=== PATIENT | female | born 1955 | race Caucasian/White ===

== ENCOUNTER → 2016-11-18 | Outpatient (CLI) | payer BC ==
[~2016-11-18] MED LIST: ZANTAC 7575 MG PO
== END ==
LOC: COL.RAD 09:42
DX: K80.20 Calculus of gallbladder without cholecystitis without obstruction (principal); K76.0 Fatty (change of) liver, not elsewhere classified; M47.816 Spondylosis without myelopathy or radiculopathy, lumbar region; M43.17 Spondylolisthesis, lumbosacral region
CPT/HCPCS: Q9967

== ENCOUNTER 2016-11-24 07:53 | Day surgery (SDC) | payer BC ==
[~2016-11-24] VITALS: Ht 162.6 cm; Wt 84.3 kg
[2016-11-24 08:14] VITALS: BP 147/86; PULSE 66; TEMP 98
[2016-11-24] MEDS ORDERED: ASPIRIN 81M81 MG/TA2 PO (08:55)
[2016-11-24] MEDS ORDERED: ADVIL200 MG PO (08:56)
[2016-11-24] MEDS ORDERED: ROXICODONE 55 MG/TAB PO (08:57)
[2016-11-24] MEDS ORDERED: MULTI VITAMINS1 TAB PO (08:58)
[2016-11-24] MEDS ORDERED: CALCIUM CARBON650 M2 (08:58)
[2016-11-24 11:54] VITALS: BP 119/63; PULSE 69; TEMP 97.2
[2016-11-24 12:10] VITALS: BP 111/51; PULSE 70
[2016-11-24 12:40] VITALS: BP 106/49; PULSE 60
[2016-11-24 13:10] VITALS: BP 131/65; PULSE 56
[2016-11-24 14:09] VITALS: BP 122/65; PULSE 61; TEMP 98.3
== END 2016-11-24 14:37 | disposition home or self-care (01) ==
LOC: SDCO 07:53
DX: K80.12 Calculus of gallbladder with acute and chronic cholecystitis without obstruction (principal); K21.9 Gastro-esophageal reflux disease without esophagitis; Z82.49 Family history of ischemic heart disease and other diseases of the circulatory system
CPT/HCPCS: J0690; J1100; J1885; J2405; J2704; J2710; J3010; J7120

== ENCOUNTER → 2019-03-01 | Outpatient (CLI) | payer MEDICARE, OTHER ==
[~2019-03-01] MED LIST changes: +ADVIL200 MG PO; +ASPIRIN 81M81 MG/TA2 PO; +CALCIUM CARBON650 M2; +MULTI VITAMINS1 TAB PO; +ROXICODONE 55 MG/TAB PO
== END ==
LOC: MC.RAD 11:28
DX: Z12.31 Encounter for screening mammogram for malignant neoplasm of breast (principal)

== ENCOUNTER → 2020-05-18 | Outpatient (CLI) | payer MEDICARE | LOC: MC.RAD 05-07 14:30 | DX: Z12.31 Encounter for screening mammogram for malignant neoplasm of breast (principal) ==

== ENCOUNTER → 2021-06-29 | Outpatient (CLI) | payer MEDICARE | LOC: MC.RAD 10:58 | DX: Z12.31 Encounter for screening mammogram for malignant neoplasm of breast (principal) ==

== ENCOUNTER → 2023-08-28 | Outpatient (CLI) | payer MEDICARE | LOC: MC.RAD 13:20 | DX: Z12.31 Encounter for screening mammogram for malignant neoplasm of breast (principal) ==